=== PATIENT | female | born 1965 | race Caucasian/White ===

== ENCOUNTER 2022-04-26 13:06 | Outpatient (CLI) | payer OTHER, SELFPAY ==
--- NOTE | 2022-04-26 13:00 | CRLHL7_ITS ---
For Patients: As a result of the Century Cures Act, medical imaging exams and procedure reports are released immediately into your electronic medical record. You may view this report before your referring provider. If you have questions, please contact your health care provider. INDICATION: NONTOXIC SINGLE THYROID NODULE COMPARISON: 02/25/2021 TECHNIQUE: Brothers scale and color Doppler images were acquired of the thyroid gland. FINDINGS: The thyroid gland demonstrates normal uniform echogenicity and has a smooth outer contour. The right lobe measures 5.9 x 2.0 x 2.7 cm and the left lobe measures 5.1 x 1.7 x 1.7 cm in size. The isthmus measures 4 millimeters. Solid and cystic nodule midportion right thyroid lobe measures 2.0 x 1.4 x 1.7 cm. Previously this measured 2.4 x 1.9 x 1.9 cm. The color Doppler images demonstrate normal vascularity. There is no evidence of cervical lymphadenopathy or parathyroid mass. IMPRESSION: Mildly decreased size of TR 3 nodule midportion right thyroid lobe measuring 2 cm. Dictated by Christiano Honeycutt MD @ 04/27/2022 9:37:30 AM (Electronically Signed)
== END 2022-04-26 13:07 | disposition home or self-care (01) ==
PROVIDERS: PCP Internal Medicine; Visit Provider Surgery
DX: E04.1 Nontoxic single thyroid nodule (principal)
CPT/HCPCS: 76536

== ENCOUNTER 2022-07-19 10:51 | Outpatient (CLI) | payer OTHER, SELFPAY ==
[2022-07-19 14:49] LABS: Albumin* 4.4 g/dL (3.3-5.0); Chloride* 102 mmol/L (96-114); Potassium* 4.4 mmol/L (3.6-5.1); Sodium* 137 mmol/L (135-149)
[2022-07-19 14:51] LABS: Alanine Aminotransferase* 44 U/L (4-35); Alkaline Phosphatase* 93 U/L (40-150); Aspartate Amino Transferase* 35 U/L (12-35); Bilirubin Total* 0.7 mg/dL (0.1-1.5); Blood Urea Nitrogen* 17 mg/dL (7-30); Carbon Dioxide* 29 mmol/L (20-32); Cholesterol* 253 mg/dL (90-199); Creatinine* 0.8 mg/dL (0.5-1.5); Estimated Glomerular Filt Rate 86 ml/min; Glucose* 93 mg/dL (60-115); Total Protein* 7.6 g/dL (6.0-8.3); Triglycerides* 105 mg/dL (40-149)
[2022-07-19 14:52] LABS: Calcium* 9.7 mg/dL (8.4-10.6); HDL Cholesterol* 73 mg/dL (>=50); LDL Cholesterol Calculated 159 mg/dL (<100)
== END 2022-07-19 10:52 | disposition home or self-care (01) ==
PROVIDERS: PCP Internal Medicine; Visit Provider Family Medicine
DX: Z01.419 Encounter for gynecological examination (general) (routine) without abnormal findings (principal); E78.5 Hyperlipidemia, unspecified; E66.9 Obesity, unspecified; E04.1 Nontoxic single thyroid nodule
CPT/HCPCS: 80053; 80061

== ENCOUNTER 2022-10-20 13:11 | Outpatient (CLI) | payer OTHER, SELFPAY ==
--- NOTE | 2022-10-20 13:20 | CRLHL7_ITS ---
For Patients: As a result of the Cures Act, medical imaging exams and procedure reports are released immediately into your electronic medical record. You may view this report before your referring provider. If you have questions, please contact your health care provider. BILATERAL SCREENING MAMMOGRAM WITH COMPUTER-AIDED DETECTION AND TOMOSYNTHESIS TECHNIQUE: CC and MLO views were obtained. These mammographic images have been obtained using full-field digital technique. These mammographic images were interpreted with the benefit of computer-aided detection. Breast Tomosynthesis was used in this interpretation. COMPARISON FILM: 03/08/21, 10/03/19, 12/18/17. FINDINGS: The breasts are almost entirely fatty IMPRESSION: There is no radiographic evidence for malignancy. ASSESSMENT: BI-RADS Category 1: Negative RECOMMENDATION: Routine screening mammogram in 1 year. A lay language report of this examination will be provided to the patient. Christiano Honeycutt M.D. Diagnostic Radiologist [email or web address] BETTY/[email or web address] / be/Dictated by: Christiano Honeycutt MD @ 10/23/2022 8:37:00 AM (Electronically Signed)
== END 2022-10-20 13:12 | disposition home or self-care (01) ==
LOC: MAMMO 13:12
PROVIDERS: PCP Internal Medicine; Visit Provider Family Medicine
DX: Z12.31 Encounter for screening mammogram for malignant neoplasm of breast (principal)
CPT/HCPCS: 77063; 77067

== ENCOUNTER 2023-06-08 14:41 | Outpatient (CLI) | payer OTHER, SELFPAY ==
--- NOTE | 2023-06-08 14:45 | CRLHL7_ITS ---
For Patients: As a result of the Century Cures Act, medical imaging exams and procedure reports are released immediately into your electronic medical record. You may view this report before your referring provider. If you have questions, please contact your health care provider. INDICATION: NON TOXIC THYROID NODULE COMPARISON: 04/26/2022 TECHNIQUE: Brothers scale and color Doppler images were acquired of the thyroid gland. FINDINGS: The thyroid gland demonstrates normal uniform echogenicity and has a smooth outer contour. The right lobe measures 6.6 x 1.8 x 2.6 cm and the left lobe measures 5.9 x 1.6 x 2.1 cm in size. The isthmus measures 3 millimeters. Solid and cystic nodule right thyroid lobe measures 2.0 x 1.5 x 1.6 cm, previously measuring 2.0 x 1.4 x 1.7 cm. The color Doppler images demonstrate normal vascularity. There is no evidence of cervical lymphadenopathy or parathyroid mass. IMPRESSION: Stable nodule within the right thyroid lobe. Dictated by Christiano Honeycutt MD @ 06/08/2023 3:27:51 PM (Electronically Signed)
== END 2023-06-08 14:42 | disposition home or self-care (01) ==
LOC: US 14:42
PROVIDERS: PCP Family Medicine; Visit Provider Surgery
DX: E04.1 Nontoxic single thyroid nodule (principal)
CPT/HCPCS: 76536

== ENCOUNTER 2024-12-08 09:21 | Outpatient (CLI) | payer OTHER, SELFPAY | END 2024-12-08 09:22 | disposition home or self-care (01) | LOC: NFLDREF 12-09 21:47 | PROVIDERS: Family Medicine; PCP Family Medicine; Referring Provider Family Medicine; Visit Provider Family Medicine | DX: E78.5 Hyperlipidemia, unspecified (principal); R79.89 Other specified abnormal findings of blood chemistry; Z11.59 Encounter for screening for other viral diseases; Z13.9 Encounter for screening, unspecified | CPT/HCPCS: 80053; 80061; 86706; 86803 ==

== ENCOUNTER 2024-12-12 10:52 | Outpatient (CLI) | payer OTHER, SELFPAY ==
[2024-12-16 19:11] LABS: HPV Source Cervical/Vag; HPV, High Risk by TMA Not Detected
== END 2024-12-12 10:53 | disposition home or self-care (01) ==
PROVIDERS: PCP Family Medicine; Visit Provider Family Medicine
DX: Z12.4 Encounter for screening for malignant neoplasm of cervix (principal); Z11.51 Encounter for screening for human papillomavirus (HPV)
CPT/HCPCS: 87624; 87625; 88141; 88142

== ENCOUNTER 2025-03-26 09:17 | Outpatient (CLI) | payer OTHER, SELFPAY | END 2025-03-26 09:18 | disposition home or self-care (01) | LOC: NFLDREF 04-04 19:37 | PROVIDERS: PCP Family Medicine; Referring Provider Family Medicine; Visit Provider Family Medicine | DX: R74.8 Abnormal levels of other serum enzymes (principal); R79.89 Other specified abnormal findings of blood chemistry; E55.9 Vitamin D deficiency, unspecified; E66.9 Obesity, unspecified; Z79.1 Long term (current) use of non-steroidal anti-inflammatories (NSAID); Z11.59 Encounter for screening for other viral diseases | CPT/HCPCS: 80053; 82306; 82977; 87340 ==

== ENCOUNTER 2025-04-30 12:46 | Outpatient (CLI) | payer OTHER, SELFPAY ==
--- NOTE | 2025-04-30 13:00 | CRLHL7_ITS ---
For Patients: As a result of the Century Cures Act, medical imaging exams and procedure reports are released immediately into your electronic medical record. You may view this report before your referring provider. If you have questions, please contact your health care provider. INDICATION: BILATERAL SCREENING MAMMOGRAM, ASYMPTOMATIC 60 Y/O FEMALE COMPARISON: 10/20/2022, 03/08/2021, 10/03/2019 TECHNIQUE: Digital mammogram in CC and MLO projections including computer-aided detection (CAD) and tomosynthesis. BREAST COMPOSITION: There are scattered areas of fibroglandular density. FINDINGS: No suspicious findings. ASSESSMENT: BI-RADS 1 Negative RECOMMENDATION: Annual screening mammogram. A lay language report of this examination will be provided to the patient. Dictated by: Christiano Honeycutt MD @ 05/01/2025 09:34:53 (Electronically Signed)
== END 2025-04-30 12:47 | disposition home or self-care (01) ==
LOC: MAMMO 12:46
PROVIDERS: PCP Family Medicine; Visit Provider Family Medicine
DX: Z12.31 Encounter for screening mammogram for malignant neoplasm of breast (principal)
CPT/HCPCS: 77063; 77067